=== PATIENT | female | born 1935 | race Caucasian/White ===

== ENCOUNTER 2019-11-23 06:22 | Inpatient (IN) | payer MEDICARE, MEDICAID ==
[~2019-11-23] VITALS: Ht 160 cm; Wt 65.8 kg
[2019-11-23 07:12] LABS: BASOPHILS % 0.1 % (0.0-2.0); EOSINOPHILS % 0.1 % (0.0-5.0); HEMATOCRIT. 30.2 % (36.0-48.0); LYMPHOCYTES % 7.7 % (20.0-50.0); MEAN CORPUSCULAR HEMOGLOBIN 31.2 pg (28.0-32.0); MEAN PLATELET VOLUME 8.5 fl (7.4-10.4); MONOCYTES % 3.1 % (2.0-8.0); PLATELET 77 x1000/uL (130-400); RED BLOOD CELL COUNT 3.21 mill/uL (4.2-5.4); RED CELL DISTRIBUTION WIDTH 20.6 % (11.6-14.6)
[2019-11-23 07:20] LABS: CHLORIDE 112 mEq/L (98-107)
[2019-11-23 07:38] LABS: INR 1.1; PROTHROMBIN TIME 11.9 sec (9.6-11.0)
[2019-11-23 08:31] LABS: CLARITY URINE CLOUDY (CLEAR); COLOR URINE YELLOW (YELLOW); KETONES URINE NEGATIVE (NEGATIVE); LEUKOCYTE ESTERASE URINE 3+ (NEGATIVE); NITRITE URINE POSITIVE (NEGATIVE); OCCULT BLOOD URINE 2+ (NEGATIVE); PH URINE 6.5 (4.5-8.0); PROTEIN URINE 2+ (NEGATIVE); SPECIFIC GRAVITY URINE 1.013 (1.005-1.030); UROBILINOGEN URINE 0.2 E.U./dL (0.2-1.0)
[2019-11-23] MEDS ORDERED: CEFTRIAXONE 1 G PREMIX 50 ML IV ONE (09:30)
[2019-11-23 10:09] LABS: CHLORIDE 114 mEq/L (98-107)
[2019-11-23 10:10] LABS: INR 1.2; PROTHROMBIN TIME 12.2 sec (9.6-11.0)
[2019-11-23] MEDS: SODIUM CHLORIDE 0.9% 1,000 ML IV SCH ×2 (11:05→19:43)
[2019-11-23] MEDS ORDERED: ACETAMINOPHEN 325MG TABLET PO PRN (11:15)
[2019-11-23] MEDS ORDERED: NITROGLYCERIN 0.4MG TABLET SL SL PRN (11:15)
[2019-11-23] MEDS ORDERED: DOCUSATE SODIUM 100MG CAPSULE PO PRN (11:15)
[2019-11-23] MEDS ORDERED: ONDANSETRON HCL 4MG/2ML INJ IV PRN (11:15)
[2019-11-23] MEDS ORDERED: ENOXAPARIN 40MG/0.4ML SYR SUBCUT SCH (11:15)
[2019-11-23] MEDS ORDERED: LEVOFLOXACIN 500MG PREMIX 100 ML IV SCH (11:15)
[2019-11-23] MEDS ORDERED: IPRATROPIUM/ALBUTEROL 0.5-3(2.5)MG/3ML NEB NEB PRN (11:15)
[2019-11-23] MEDS ORDERED: GUAIFENESIN 200MG/10ML SUGAR FREE UDC PO PRN (11:15)
[2019-11-23] MEDS ORDERED: CEFTRIAXONE 1 G PREMIX 50 ML IV SCH (11:15)
[2019-11-23] MEDS ORDERED: LEVOFLOXACIN 500MG PREMIX 100 ML IV ONE (12:00)
[2019-11-23] MEDS: FAMOTIDINE 20MG TABLET PO SCH (12:00)
[2019-11-23] MEDS ORDERED: PAMIDRONATE DISODIUM 90 MG in SODIUM CHLORIDE 0.9% 1,000 ML IV ONE (12:00)
[2019-11-23] MEDS: ASCORBIC ACID 500 MG TABLET PO SCH ×2 (12:00→22:17)
[2019-11-23] MEDS: ZINC SULFATE 220 MG ( 50 ) CAPSULE PO SCH (12:00)
[2019-11-23] MEDS: KETOROLAC 15MG/ML VIAL IV PRN (12:56)
[2019-11-23 13:00] LABS: T4 FREE 1.35 ng/dL (0.76-1.46)
[2019-11-23 14:58] LABS: FOLIC ACID (FOLATE) SERUM 5.7 ng/mL (>5.38)
[2019-11-23] MEDS: FUROSEMIDE 40MG/4ML VIAL IVP SCH (18:36)
[2019-11-23 20:50] VITALS: BP 105/60
[2019-11-23] MEDS ORDERED: FAMOTIDINE 20MG TABLET PO SCH (21:00)
[2019-11-23] MEDS: METOPROLOL TARTRATE 25MG TABLET PO SCH (21:00)
[2019-11-23] MEDS ORDERED: ZOLPIDEM TARTRATE 5MG TABLET PO PRN (21:00)
[2019-11-23 22:14] LABS: CREATINE KINASE 47 IU/L (26-192)
[2019-11-23 22:15] LABS: CREATINE KINASE MB FRACTION < 1.0 ng/mL (0.5-3.6)
[2019-11-24] VITALS (7 sets, daily range): BP systolic 135–155; BP diastolic 50–67
[2019-11-24] MEDS ORDERED: MEGE40TA8 MT
[2019-11-24] MEDS ORDERED: METH150T MT
[2019-11-24] MEDS ORDERED: METO-411 MT
[2019-11-24] MEDS ORDERED: ASCO500C18 PO
[2019-11-24] MEDS ORDERED: ACET-2708 MT
[2019-11-24] MEDS ORDERED: FERR325T6 MT
[2019-11-24] MEDS ORDERED: POTA10CA42 MT
[2019-11-24] MEDS ORDERED: TRAM150C25 MT
[2019-11-24] MEDS ORDERED: GABA-531 MT
[2019-11-24] MEDS: SODIUM CHLORIDE 0.9% 1,000 ML IV SCH ×3 (03:05→19:05)
[2019-11-24] MEDS: FUROSEMIDE 40MG/4ML VIAL IVP SCH (05:08)
[2019-11-24 07:16] LABS: HEMATOCRIT. 27.1 % (36.0-48.0); HEMOGLOBIN. 9.1 g/dL (12.0-16.0); MEAN CORPUSCULAR HEMOGLOBIN 31.7 pg (28.0-32.0); MEAN CORPUSCULAR VOLUME 94.2 fL (81.0-99.0); PLATELET 78 x1000/uL (130-400); RED BLOOD CELL COUNT 2.87 mill/uL (4.2-5.4)
[2019-11-24 07:22] LABS: CHLORIDE 118 mEq/L (98-107)
[2019-11-24 07:34] LABS: PHOSPHORUS 2.8 mg/dL (2.5-4.9)
[2019-11-24] MEDS ORDERED: MAGNESIUM 1 G PREMIX 100 ML IV NR (10:00)
[2019-11-24] MEDS ORDERED: CEFTRIAXONE 1,000 MG in DEXTROSE 5% WATER 50 ML IV SCH ×4 (10:00)
[2019-11-24] MEDS: METOPROLOL TARTRATE 25MG TABLET PO SCH ×2 (10:01→20:47)
[2019-11-24] MEDS: FAMOTIDINE 20MG TABLET PO SCH (10:02)
[2019-11-24] MEDS: ASCORBIC ACID 500 MG TABLET PO SCH ×2 (10:02→20:47)
[2019-11-24] MEDS: ASPIRIN 325MG EC TABLET PO SCH (10:02)
[2019-11-24] MEDS: ZINC SULFATE 220 MG ( 50 ) CAPSULE PO SCH (10:02)
[2019-11-24] MEDS: ACETAMINOPHEN 325MG TABLET PO PRN (10:03)
[2019-11-24] MEDS: LEVOFLOXACIN 250MG PREMIX 50 ML IV SCH (11:45)
[2019-11-24] MEDS ORDERED: LEVOFLOXACIN 250MG PREMIX 50 ML IV SCH (12:00)
[2019-11-24 12:37] LABS: *AMPHETAMINES SCREEN URINE NEGATIVE (NEGATIVE); *BARBITURATES SCREEN URINE NEGATIVE (NEGATIVE); *BENZODIAZEPINES SCREEN URINE NEGATIVE (NEGATIVE); *COCAINE SCREEN URINE NEGATIVE (NEGATIVE); CANNABINOID URINE SCREEN NEGATIVE (NEGATIVE); PHENCYCLIDINE URINE SCREEN NEGATIVE (NEGATIVE)
[2019-11-24 12:38] LABS: METHADONE URINE SCREEN NEGATIVE (NEGATIVE); OPIATES URINE SCREEN NEGATIVE (NEGATIVE)
[2019-11-24 12:45] LABS: PLATELET ESTIMATE DECREASED
[2019-11-24] MEDS ORDERED: KCL 20MEQ/100ML PREMIX 100 ML IV SCH (20:00)
[2019-11-24] MEDS ORDERED: MAGNESIUM 4 G PREMIX 100 ML IV SCH (20:00)
[2019-11-24] MEDS: KETOROLAC 15MG/ML VIAL IV PRN (20:48)
[2019-11-25 00:03] VITALS: BP 138/60
[2019-11-25] MEDS: SODIUM CHLORIDE 0.9% 1,000 ML IV SCH ×2 (03:50→12:03)
[2019-11-25 04:00] VITALS: BP 107/47
[2019-11-25] MEDS: FUROSEMIDE 40MG/4ML VIAL IVP SCH (05:13)
[2019-11-25 08:00] VITALS: BP 138/48
[2019-11-25] MEDS: ASPIRIN 325MG EC TABLET PO SCH (09:08)
[2019-11-25] MEDS: ZINC SULFATE 220 MG ( 50 ) CAPSULE PO SCH (09:08)
[2019-11-25] MEDS: FAMOTIDINE 20MG TABLET PO SCH (09:08)
[2019-11-25] MEDS: ASCORBIC ACID 500 MG TABLET PO SCH ×2 (09:09→21:26)
[2019-11-25] MEDS: METOPROLOL TARTRATE 25MG TABLET PO SCH ×2 (09:09→21:25)
[2019-11-25 09:45] LABS: HEMATOCRIT. 29.5 % (36.0-48.0); HEMOGLOBIN. 9.6 g/dL (12.0-16.0); MEAN CORPUSCULAR HEMOGLOBIN 30.9 pg (28.0-32.0); MEAN CORPUSCULAR VOLUME 94.7 fL (81.0-99.0); MEAN PLATELET VOLUME 8.5 fl (7.4-10.4); PLATELET 77 x1000/uL (130-400); RED BLOOD CELL COUNT 3.11 mill/uL (4.2-5.4); RED CELL DISTRIBUTION WIDTH 20.8 % (11.6-14.6)
[2019-11-25 09:54] LABS: CHLORIDE 121 mEq/L (98-107)
[2019-11-25 10:03] LABS: PHOSPHORUS 1.6 mg/dL (2.5-4.9)
[2019-11-25] MEDS ORDERED: POTASSIUM CHLORIDE 20MEQ TABLET SR PO SCH (10:15)
[2019-11-25] MEDS: MEROPENEM 500 MG in SODIUM CHLORIDE 0.9% 50 ML IV SCH ×2 (10:51→21:26)
[2019-11-25 11:49] VITALS: BP 153/57
[2019-11-25] MEDS ORDERED: POTASSIUM CHLORIDE INJ 40 MEQ in DEXT 5% WATER 250 ML IV SCH (12:00)
[2019-11-25] MEDS: LEVOFLOXACIN 250MG PREMIX 50 ML IV SCH (12:01)
[2019-11-25] MEDS: SODIUM CHLORIDE 0.45% 1,000 ML IV SCH ×2 (12:45→22:45)
[2019-11-25] MEDS ORDERED: POTASSIUM PHOS,M-BASIC-D-BASIC 30 MMOL in DEXT 5% WATER 500 ML IV NR (14:30)
[2019-11-25 14:35] LABS: PLATELET ESTIMATE DECREASED
[2019-11-25 16:00] VITALS: BP 158/102
[2019-11-25] MEDS: ACETAMINOPHEN 325MG TABLET PO PRN (18:17)
[2019-11-25 20:00] VITALS: BP 151/51
[2019-11-26] VITALS: BP 145/56
[2019-11-26 04:00] VITALS: BP 160/63
[2019-11-26 05:55] LABS: HEMOGLOBIN. 9.9 g/dL (12.0-16.0); MEAN CORPUSCULAR HEMOGLOBIN 31.4 pg (28.0-32.0); MEAN CORPUSCULAR VOLUME 95.6 fL (81.0-99.0); MEAN PLATELET VOLUME 9.1 fl (7.4-10.4); PLATELET 78 x1000/uL (130-400); RED BLOOD CELL COUNT 3.14 mill/uL (4.2-5.4); RED CELL DISTRIBUTION WIDTH 21.4 % (11.6-14.6)
[2019-11-26 08:02] VITALS: BP 158/66
[2019-11-26] MEDS: SODIUM CHLORIDE 0.45% 1,000 ML IV SCH ×2 (08:10→17:41)
[2019-11-26] MEDS: FAMOTIDINE 20MG TABLET PO SCH (08:10)
[2019-11-26] MEDS: METOPROLOL TARTRATE 25MG TABLET PO SCH ×2 (08:10→21:34)
[2019-11-26] MEDS: ASCORBIC ACID 500 MG TABLET PO SCH ×2 (08:10→21:33)
[2019-11-26] MEDS: ZINC SULFATE 220 MG ( 50 ) CAPSULE PO SCH (08:10)
[2019-11-26] MEDS: MEROPENEM 500 MG in SODIUM CHLORIDE 0.9% 50 ML IV SCH ×2 (08:10→21:34)
[2019-11-26] MEDS: ASPIRIN 325MG EC TABLET PO SCH (08:10)
[2019-11-26 09:28] LABS: CHLORIDE 122 mEq/L (98-107)
[2019-11-26 09:35] LABS: PHOSPHORUS 3.3 mg/dL (2.5-4.9)
[2019-11-26] MEDS: LEVOFLOXACIN 250MG PREMIX 50 ML IV SCH (11:41)
[2019-11-26 12:00] VITALS: BP 152/63
[2019-11-26 14:35] LABS: PLATELET ESTIMATE DECREASED
[2019-11-26] MEDS: ACETAMINOPHEN 325MG TABLET PO PRN (14:46)
[2019-11-26 16:00] VITALS: BP 153/59
[2019-11-26 20:00] VITALS: BP 165/66
[2019-11-27] VITALS: BP 160/64
[2019-11-27 04:00] VITALS: BP 176/66
[2019-11-27] MEDS: SODIUM CHLORIDE 0.45% 1,000 ML IV SCH ×3 (06:05→21:57)
[2019-11-27 06:41] LABS: HEMATOCRIT. 29.8 % (36.0-48.0); HEMOGLOBIN. 9.7 g/dL (12.0-16.0); MEAN CORPUSCULAR HEMOGLOBIN 30.8 pg (28.0-32.0); MEAN CORPUSCULAR VOLUME 94.6 fL (81.0-99.0); MEAN PLATELET VOLUME 9.3 fl (7.4-10.4); PLATELET 68 x1000/uL (130-400); RED BLOOD CELL COUNT 3.14 mill/uL (4.2-5.4); RED CELL DISTRIBUTION WIDTH 21.2 % (11.6-14.6)
[2019-11-27 06:55] LABS: CHLORIDE 122 mEq/L (98-107)
[2019-11-27 08:00] VITALS: BP 161/68
[2019-11-27] MEDS: ASPIRIN 325MG EC TABLET PO SCH (09:18)
[2019-11-27] MEDS: METOPROLOL TARTRATE 25MG TABLET PO SCH ×2 (09:19→21:57)
[2019-11-27] MEDS: ZINC SULFATE 220 MG ( 50 ) CAPSULE PO SCH (09:20)
[2019-11-27] MEDS: ASCORBIC ACID 500 MG TABLET PO SCH ×2 (09:20→21:57)
[2019-11-27] MEDS: FAMOTIDINE 20MG TABLET PO SCH (09:20)
[2019-11-27] MEDS: MEROPENEM 500 MG in SODIUM CHLORIDE 0.9% 50 ML IV SCH (10:47)
[2019-11-27 12:00] VITALS: BP 151/74
[2019-11-27] MEDS ORDERED: VANCOMYCIN 750 MG PREMIX 150 ML IV SCH (13:00)
[2019-11-27] MEDS: NITROFURANTOIN 100MG M/M CAPSULE PO SCH ×2 (15:01→21:57)
[2019-11-27] MEDS: CEFTAZIDIME PENTAHYDRATE 1 G in DEXTROSE 5% WATER 50 ML IV SCH (15:20)
[2019-11-27 16:00] VITALS: BP 158/68
[2019-11-27 19:38] LABS: PLATELET ESTIMATE DECREASED
[2019-11-27 20:00] VITALS: BP 152/71
[2019-11-28] VITALS (7 sets, daily range): BP systolic 125–172; BP diastolic 56–76
[2019-11-28] MEDS: CEFTAZIDIME PENTAHYDRATE 1 G in DEXTROSE 5% WATER 50 ML IV SCH ×2 (03:13→15:50)
[2019-11-28] MEDS: ZINC SULFATE 220 MG ( 50 ) CAPSULE PO SCH (08:49)
[2019-11-28] MEDS: ASCORBIC ACID 500 MG TABLET PO SCH ×2 (08:49→20:19)
[2019-11-28] MEDS: NITROFURANTOIN 100MG M/M CAPSULE PO SCH ×2 (08:49→20:20)
[2019-11-28] MEDS: ASPIRIN 325MG EC TABLET PO SCH (08:49)
[2019-11-28] MEDS: METOPROLOL TARTRATE 25MG TABLET PO SCH ×2 (08:50→20:20)
[2019-11-28] MEDS: SODIUM CHLORIDE 0.45% 1,000 ML IV SCH ×2 (09:42→20:19)
[2019-11-28] MEDS ORDERED: POTASSIUM CHLORIDE 20MEQ TABLET SR PO NR (11:45)
[2019-11-28] MEDS: FAMOTIDINE 20MG TABLET PO SCH (12:35)
[2019-11-29] VITALS: BP 136/60
[2019-11-29] MEDS: CEFTAZIDIME PENTAHYDRATE 1 G in DEXTROSE 5% WATER 50 ML IV SCH (03:09)
[2019-11-29 04:00] VITALS: BP 121/52
[2019-11-29] MEDS: SODIUM CHLORIDE 0.45% 1,000 ML IV SCH ×2 (05:16→06:07)
[2019-11-29 08:00] VITALS: BP 136/40
[2019-11-29] MEDS: METOPROLOL TARTRATE 25MG TABLET PO SCH (08:50)
[2019-11-29] MEDS: NITROFURANTOIN 100MG M/M CAPSULE PO SCH (08:50)
[2019-11-29] MEDS: ASPIRIN 325MG EC TABLET PO SCH (08:50)
[2019-11-29] MEDS: FAMOTIDINE 20MG TABLET PO SCH (08:50)
[2019-11-29] MEDS: ASCORBIC ACID 500 MG TABLET PO SCH (08:50)
[2019-11-29] MEDS: ZINC SULFATE 220 MG ( 50 ) CAPSULE PO SCH (09:00)
[2019-11-29 09:59] VITALS: BP 136/50
== END 2019-11-29 11:35 | disposition home health service (06) | DRG 871 ==
LOC: ER 06:54 → 6WST 10:18 → EDBEDREQ 10:19 → EDBEDREQSVC 10:19 → EDBEDREQTM 10:19 → SUPCPDRO 11:05 → ENRESERV 20:27
PROVIDERS: ADMIT Internal Medicine; ATTEND Internal Medicine
DX: A41.9 Sepsis, unspecified organism (principal); E43 Unspecified severe protein-calorie malnutrition; G92 Toxic encephalopathy; N17.9 Acute kidney failure, unspecified; N13.6 Pyonephrosis; I31.3 Pericardial effusion (noninflammatory); N39.0 Urinary tract infection, site not specified; D63.8 Anemia in other chronic diseases classified elsewhere; E83.42 Hypomagnesemia; E83.52 Hypercalcemia; E87.6 Hypokalemia; I25.10 Atherosclerotic heart disease of native coronary artery without angina pectoris; C55 Malignant neoplasm of uterus, part unspecified; D69.6 Thrombocytopenia, unspecified; K57.90 Diverticulosis of intestine, part unspecified, without perforation or abscess without bleeding; Z85.42 Personal history of malignant neoplasm of other parts of uterus; Z68.25 Body mass index [BMI] 25.0-25.9, adult; Z79.899 Other long term (current) drug therapy
CPT/HCPCS: 36415; 70551; 71045; 74176; 80048; 80053; 80061; 80305; 81003; 82550; 82553; 82607; 82728; 82746; 83540; 83550; 83605; 83615; 83735; 83970; 84100; 84134; 84145; 84439; 84443; 84484; 85025; 87077; 87186; 93005; 93306; 93970; 99285; J0696; J0713; J1885; J1940; J1956; J2185; J2430; J3370; J3475; J3480; J3490; J7030; J7060